=== PATIENT | male | born 1980 | race Caucasian/White ===

== ENCOUNTER → 2023-02-23 | Outpatient (CLI) | payer OTHER | LOC: NM 08:13 | PROVIDERS: ATTEND Surgery | DX: E21.3 Hyperparathyroidism, unspecified (principal) | CPT/HCPCS: 78071; A9512 ==

== ENCOUNTER 2023-03-06 10:05 | Observation (INO) | payer OTHER ==
[2023-03-02 12:51] LABS: BASOPHILS % 0.6 % (0.0-1.0); EOSINOPHILS # (AUTO) 0.2 (0.0-0.4); HEMATOCRIT 41.8 % (38.2-49.6); HEMOGLOBIN 14.3 g/dL (14.0-18.0); LYMPHOCYTES # (AUTO) 2.6 (1.0-3.2); LYMPHOCYTES % 37.2 % (18.0-39.1); MEAN CORPUSCULAR HGB CONC 34.2 g/dL (31-35); MEAN CORPUSCULAR VOLUME 90.5 fL (81-99); MONOCYTES # (AUTO) 0.5 (0.2-0.8); MONOCYTES % 6.5 % (4.4-11.3); NEUTROPHILS # (AUTO) 3.7 (2.1-6.9); NEUTROPHILS % 52.6 % (38.7-80.0); PLATELET COUNT 198 x10e3/uL (140-360); RED BLOOD COUNT 4.62 x10e6/uL (4.3-5.7); RED CELL DISTRIBUTION WIDTH 13.2 % (11.7-14.4)
[2023-03-02 13:15] LABS: ALBUMIN 4.1 g/dL (3.5-5.0); ALBUMIN/GLOBULIN RATIO 1.6 (0.8-2.0); ANION GAP 11.2 mmol/L (8-16); CREATININE, SERUM 0.92 mg/dL (0.72-1.25); POTASSIUM 4.2 mmol/L (3.5-5.1)
[~2023-03-06] VITALS: Ht 152.4 cm; Wt 97.5 kg
[~2023-03-06 10:05] MED LIST: CREATINE100 GM; MULTI-VITAMIN1 EACH PO; TURMERIC500 M1; VITAMIN D31 ML
[2023-03-06] MEDS ORDERED: LACTATED RINGER'S 1,000 ML ONE (10:36)
[2023-03-06] MEDS ORDERED: FENTANYL CITRATE/PF 100MCG/2 ML INJ ONE (12:06)
[2023-03-06] MEDS ORDERED: MIDAZOLAM HCL 2 MG/2 ML VIAL ONE (12:06)
[2023-03-06] MEDS ORDERED: ACETAMINOPHEN 1000 MG/100 ML 100 ML IV ONE (12:24)
[2023-03-06] MEDS ORDERED: ONDANSETRON HCL INJ 2MG/ML 2ML 2 MG/ML VIAL ONE (13:00)
[2023-03-06] MEDS ORDERED: POVIDONE IODINE 0.05% 0.05 % ML PO ONE (13:00)
[2023-03-06] MEDS ORDERED: DEXAMETHASONE SOD PHOS INJ 4 MG/ML SDV ONE (13:00)
[2023-03-06] MEDS ORDERED: KETOROLAC TROMETHAMINE 30 MG/ML VIAL ONE (13:00)
[2023-03-06] MEDS ORDERED: LIDOCAINE HCL 2% LOCAL INJ 5 ML SDV VIAL INJ ONE (13:00)
[2023-03-06] MEDS ORDERED: PROPOFOL IV EMULSION 10 MG/ML 20 ML VIAL ONE (13:00)
[2023-03-06] MEDS ORDERED: ROCURONIUM BROMIDE 10 MG/ML 5ML VIAL IV ONE (13:00)
[2023-03-06] MEDS ORDERED: SEVOFLURANE INHAL SOLN 250 ML PEN BTL ONE (13:00)
[2023-03-06] MEDS ORDERED: HYDROCODONE/APAP 7.5MG-325MG 1 EA TAB PO PRN (14:45)
[2023-03-06] MEDS ORDERED: ACETAMINOPHEN 1000 MG/100 ML IV PRN (14:45)
[2023-03-06] MEDS: FENTANYL CITRATE/PF 100MCG/2 ML INJ ONE ×2 (15:00→15:17)
[2023-03-06 16:49] VITALS: BP 125/76; PULSE 67; RESP 16; TEMP 98.2; O2SAT 97
[2023-03-06] MEDS ORDERED: SODIUM CHLORIDE 0.9% 250ML 0 ML ONE (17:26)
[2023-03-06 17:33] VITALS: BP 125/76; PULSE 67; RESP 16; TEMP 98.2; O2SAT 97
[2023-03-06] MEDS: ONDANSETRON HCL INJ 2MG/ML 2ML 2 MG/ML VIAL IV PRN ×2 (18:21→23:55)
[2023-03-06] MEDS: HYDROMORPHONE 1MG/1ML INJ IV PRN ×2 (18:27→23:55)
[2023-03-06] MEDS: DEXTROSE 5%/LACTATED RINGERS 1,000 ML IV SCH (18:28)
[2023-03-06 20:17] VITALS: BP 115/71; PULSE 53; RESP 17; TEMP 97.3; O2SAT 100
[2023-03-06 21:00] VITALS: BP 115/71; PULSE 53; RESP 17; TEMP 97.3; O2SAT 100
[2023-03-07] VITALS (8 sets, daily range): BP systolic 99–121; BP diastolic 57–75; PULSE 50–67; RESP 17–20; TEMP 97.6–98.5; O2SAT 97–100
[2023-03-07] MEDS: DEXTROSE 5%/LACTATED RINGERS 1,000 ML IV SCH ×3 (02:30→20:11)
[2023-03-07 05:38] LABS: BASOPHILS % 0.2 % (0.0-1.0); EOSINOPHILS % 0.4 % (0.0-6.0); HEMATOCRIT 37.5 % (38.2-49.6); HEMOGLOBIN 12.4 g/dL (14.0-18.0); LYMPHOCYTES # (AUTO) 1.9 (1.0-3.2); LYMPHOCYTES % 19.8 % (18.0-39.1); MEAN CORPUSCULAR HEMOGLOBIN 30.5 pg (28-32); MEAN CORPUSCULAR HGB CONC 33.1 g/dL (31-35); MEAN CORPUSCULAR VOLUME 92.4 fL (81-99); MONOCYTES # (AUTO) 0.6 (0.2-0.8); MONOCYTES % 5.8 % (4.4-11.3); NEUTROPHILS # (AUTO) 7.1 (2.1-6.9); NEUTROPHILS % 73.5 % (38.7-80.0); PLATELET COUNT 191 x10e3/uL (140-360); RED BLOOD COUNT 4.06 x10e6/uL (4.3-5.7); RED CELL DISTRIBUTION WIDTH 13.6 % (11.7-14.4)
[2023-03-07 05:50] LABS: ANION GAP 10.5 mmol/L (8-16); CALCIUM 8.6 mg/dL (8.4-10.2); CREATININE, SERUM 0.83 mg/dL (0.72-1.25); POTASSIUM 4.5 mmol/L (3.5-5.1)
[2023-03-07] MEDS: ONDANSETRON HCL INJ 2MG/ML 2ML 2 MG/ML VIAL IV PRN ×2 (08:16→22:19)
[2023-03-07] MEDS: HYDROMORPHONE 1MG/1ML INJ IV PRN ×2 (08:16→22:20)
[2023-03-08 00:28] VITALS: BP 112/62; PULSE 62; RESP 17; TEMP 98.3; O2SAT 97
[2023-03-08 04:29] VITALS: BP 119/83; PULSE 71; RESP 17; TEMP 97.9; O2SAT 97
[2023-03-08 07:44] VITALS: BP 121/67; PULSE 75; RESP 18; TEMP 98.4; O2SAT 96
[2023-03-08 07:50] VITALS: BP 121/67; PULSE 75; RESP 18; TEMP 98.4; O2SAT 96
[2023-03-08 08:20] VITALS: BP 121/67; PULSE 75; RESP 18; TEMP 98.4; O2SAT 96
[2023-03-08] MEDS: DEXTROSE 5%/LACTATED RINGERS 1,000 ML IV SCH (09:00)
[2023-03-08 11:27] VITALS: BP 148/74; PULSE 67; RESP 18; TEMP 98.6; O2SAT 100
[2023-03-08] MEDS ORDERED: OYST-CAL-D 500MG TABLET PO SCH (11:35)
[2023-03-08] MEDS ORDERED: ONDANSETRON HCL 4 MG ORAL DISINTEGRATING TAB PO PRN (12:30)
[2023-03-08] MEDS ORDERED: PANTOPRAZOLE SOD 40 MG TABEC PO SCH (16:30)
== END 2023-03-08 12:53 | disposition home or self-care (01) ==
LOC: OR 10:05 → PACU V 14:37 → MED/SURG 16:14
PROVIDERS: ADMIT Surgery; ATTEND Surgery
DX: D35.1 Benign neoplasm of parathyroid gland (principal); E21.0 Primary hyperparathyroidism; K59.09 Other constipation; K40.90 Unilateral inguinal hernia, without obstruction or gangrene, not specified as recurrent; R10.31 Right lower quadrant pain; M54.9 Dorsalgia, unspecified; Z01.810 Encounter for preprocedural cardiovascular examination; Z01.812 Encounter for preprocedural laboratory examination; Z79.899 Other long term (current) drug therapy
CPT/HCPCS: 36415; 80048; 80053; 82310; 85025; 88304; 88305; 88331; 93005; G0378; J1100; J1170; J1885; J2001; J2250; J2405; J7050

== ENCOUNTER → 2023-07-24 | Outpatient (REF) | payer OTHER ==
[~2023-07-24] MED LIST changes: +IOPAMIDOL 370 MG/ML 100 ML INFUS..BTL INJ ONE
== END ==
LOC: CT 08:46
PROVIDERS: ATTEND Internal Medicine Medical Oncology
DX: R19.8 Other specified symptoms and signs involving the digestive system and abdomen (principal); R93.89 Abnormal findings on diagnostic imaging of other specified body structures
CPT/HCPCS: 71260; Q9967